=== PATIENT | male | born 1970 | race Caucasian/White ===

== ENCOUNTER 2022-03-18 15:28 | Emergency (ER) | payer OTHER ==
[2022-03-18 15:35] VITALS: RESP 18
[2022-03-18] MEDS ORDERED: DIPH,PERTUS(ACELL)TETVAC-LF 0.5 ML VIAL IM ONE (16:24)
--- NOTE | 2022-03-18 16:24 | ED ---
General Adult HPI - General Chief complaint: Fall Stated complaint: syncope, fall Time Seen by Provider: 03/18/22 15:28 Source: patient, EMS, RN notes reviewed, old records reviewed Mode of arrival: EMS - History of Present Illness Initial comments: This is a 51-year-old male who presents emergency Department stating that he stubbed his toe and broke his nail on his first toe on the right foot it hurt quite a bit he also fell hit his right elbow little bit and then slightly hit his head on a car. Patient states initially he did not lose consciousness. Patient states she's had down a few minutes there is been lightheaded and then he passed out. Patient currently has no complaints he denies headache denies any tenderness of the scalp. Patient denies any neck pain patient denies numbness weakness per patient denies chest pain difficulty breathing or shortness of breath at any time. Patient states he did wake up this morning feeling a little bit under the weather but had no fevers or cough. Patient states took over test before coming over to [place] from [place] and it was negative. - Related Data Allergies Allergy/AdvReac Type Severity Reaction Status Date / Time No Known Allergies Allergy Verified 03/18/22 15:37 Review of Systems ROS Statement: Those systems with pertinent positive or pertinent negative responses have been documented in the HPI. ROS Other: All systems not noted in ROS Statement are negative. Past Medical History Past Medical History: Hypertension Past Surgical History: No Surgical Hx Reported Past Psychological History: No Psychological Hx Reported Smoking Status: Never smoker Past Alcohol Use History: None Reported Past Drug Use History: None Reported General Exam - General Exam Comments Initial Comments: GENERAL: Patient is well-developed and well-nourished. Patient is nontoxic and well- hydrated and is in no acute distress. ENT: Neck is soft and supple. No significant lymphadenopathy is noted. Oropharynx is clear. Moist mucous membranes. Neck has full range of motion without eliciting any pain. EYES: The sclera were anicteric and conjunctiva were pink and moist. Extraocular movements were intact and pupils were equal round and reactive to light. Eyelids were unremarkable. PULMONARY: Unlabored respirations. Good breath sounds bilaterally. No audible rales rhonchi or wheezing was noted. CARDIOVASCULAR: There is a regular rate and rhythm without any murmurs gallops or rubs. ABDOMEN: Soft and nontender with normal bowel sounds. SKIN: Skin is clear with no lesions or rashes and otherwise unremarkable. NEUROLOGIC: Patient is alert and oriented x3. Cranial nerves II through XII are grossly intact. Motor and sensory are also intact. Normal speech, volume and content. Symmetrical smile. MUSCULOSKELETAL: Left toe had a false nail but was still intact. There is no subungual hematoma. Minimal tenderness of the distal phalanx. Patient is right elbow is tender medially but has full range of motion. LYMPHATICS: No significant lymphadenopathy is noted PSYCHIATRIC: Normal psychiatric evaluation. Course Vital Signs 03/18/22 15:30 Temperature 97.9 F Pulse Rate 75 Respiratory 18 Rate Blood Pressure 130/82 O2 Sat by Pulse 95 Oximetry Medical Decision Making - Medical Decision Making EKG shows sinus rhythm at 60 bpm TX interval 252 QRS is 92 QT interval is 390 QTC is 45. Patient's EKG shows no ST segment elevation or depression. X-ray showed no of elbow showed no acute abnormality. X-ray of the toe showed no acute abnormality. Patient had no symptoms well in the emergency department. Disposition Clinical Impression: Vasovagal syncope, Toenail avulsion, Elbow contusion Disposition: HOME SELF-CARE Condition: Good Instructions (If sedation given, give patient instructions): Fall Prevention (ED) Is patient prescribed a controlled substance at d/c from ED?: No Referrals: Nonstaff,Physician [Primary Care Provider] - 1-2 days Time of Disposition: 16:51
--- NOTE | 2022-03-18 16:25 | XR ---
EXAMINATION TYPE: XR toes RT DATE OF EXAM: 03/18/2022 4:09 PM INDICATION: Patient age:Male; 51 years old; Reason for study: Trauma; COMPARISON: None TECHNIQUE: The right toes were examined in the AP, oblique, and lateral projections. FINDINGS: No definitive fracture of the right great toe. The oblique view does demonstrate the medial sesamoid which does appear intact. No evidence of any acute osseous pathology. Minimal soft tissue swelling around the first digit. Join ts are preserved. IMPRESSION: No displaced fracture of the first digit.
--- NOTE | 2022-03-18 16:26 | XR ---
EXAMINATION TYPE: XR elbow complete RT DATE OF EXAM: 03/18/2022 4:09 PM INDICATION: Patient age:Male; 51 years old; Reason for study: Trauma; . COMPARISON: None TECHNIQUE: The right elbow was examined in AP, lateral, and oblique projections. FINDINGS: Mild soft tissue swelling over the olecranon process. No evidence of any acute osseous path ology, joint dislocation, or soft tissue swelling is noted. No evidence of joint effusion is present . IMPRESSION: No evidence of acute fracture. Olecranon process soft tissue swelling likely secondary to history of trauma.
[2022-03-18 17:12] VITALS: BP 131/84; PULSE 67; TEMP 98.2
--- NOTE | 2022-03-19 10:40 | XR ---
EXAMINATION TYPE: XR toes LT DATE OF EXAM: 03/18/2022 4:09 PM INDICATION: Patient age:Male; 51 years old; Reason for study: Trauma; COMPARISON: None TECHNIQUE: The left toes were examined in the AP, oblique, and lateral projections. FINDINGS: No definitive fracture of the left great toe. The oblique view does demonstrate the medial sesamoid which does appear intact. No evidence of any acute osseous pathology. Minimal soft tissue swelling around the first digit. Joints are preserved. IMPRESSION: No displaced fracture of the first digit. MTDD
== END 2022-03-18 17:10 | disposition home or self-care (01) ==
LOC: EC 15:28
DX: S91.205A Unspecified open wound of left lesser toe(s) with damage to nail, initial encounter (principal); S50.01XA Contusion of right elbow, initial encounter; R55 Syncope and collapse; I10 Essential (primary) hypertension; Z23 Encounter for immunization; W19.XXXA Unspecified fall, initial encounter
CPT/HCPCS: 90471; 90715; 93005; 99284